=== PATIENT | male | born 1995 | race Two or more races ===

== ENCOUNTER 2020-05-02 17:18 | Emergency (ER) | payer SELFPAY ==
[~2020-05-02] VITALS: Ht 188 cm; Wt 96.3 kg
[2020-05-02 17:45] VITALS: BP 142/82
[2020-05-02] MEDS ORDERED: LIDOCAINE-MPF 1%, 5ML ONE (18:05)
[2020-05-02] MEDS ORDERED: LIDOCAINE-MPF 1%, 5ML INFIL ONE (18:30)
--- NOTE | 2020-05-02 18:38 | NUR ---
TASK RN: PT SET UP FOR IRRIGATION AND SUTURES, ALEX ASIF AND SAMARIA HOLLAND AT BEDSIDE.
--- NOTE | 2020-05-02 18:52 | NUR ---
report from bhavik pablo assuming care of pt
== END 2020-05-02 19:36 | disposition home or self-care (01) ==
LOC: ED 19:30
DX: S01.112A Laceration without foreign body of left eyelid and periocular area, initial encounter (principal); S09.90XA Unspecified injury of head, initial encounter; F17.210 Nicotine dependence, cigarettes, uncomplicated; X58.XXXA Exposure to other specified factors, initial encounter; Y93.89 Activity, other specified; Y92.310 Basketball court as the place of occurrence of the external cause; Y99.8 Other external cause status
CPT/HCPCS: 12051; 99284